=== PATIENT | female | born 1990 | race Caucasian/White ===

== ENCOUNTER 2023-03-06 08:07 | Emergency (ER) | payer OTHER ==
[~2023-03-06] VITALS: Ht 165.1 cm; Wt 72.6 kg
--- OUTSIDE RECORDS SUMMARY | ~2023-03-06 | XMS | Continuity of Care Document ---
Demographics + + + | Address | [address] | | | [place] [address] | + + + | Preferred Language | Unknown | + + + | Marital Status | Never | + + + | Anabaptist Affiliation | Unknown | + + + | Race | White | + + + | Ethnic Group | Unknown | + + + Author + + + | Author | [facility] | + + + | Organization | [facility] | + + + | Address | [address] | | | [place] [address] | + + + | Phone | | + + + Care Team Providers + + + + | Care Assistant Front Desk Manager Name | Role | Phone | + + + + Unavailable | Unavailable | + + + + Allergies No information. Encounters No information. Functional Status No information. Immunizations No information. Medications No information. Problems + + + + | date | description | facility | + + + + | 2023-02-12 16:30 | SLEEP [facility]A, UNSPECIFIED | [facility] | + + + + | 2023-02-12 16:33 | SLEEP APNEA, UNSPECIFIED | [facility] | + + + + Procedures No information. Results/Labs No information. Social History No information. Vital Signs No information."
--- OUTSIDE RECORDS SUMMARY | ~2023-03-06 | XMS | Continuity of Care Document ---
Demographics + + + | Address | [address] | | | [place] [address] | + + + | Preferred Language | Unknown | + + + | Marital Status | Never | + + + | Samaritan Affiliation | Unknown | + + + | Race | White | + + + | Ethnic Group | Unknown | + + + Author + + + | Author | [facility] | + + + | Organization | [facility] | + + + | Address | [address] | | | [place] [address] | + + + | Phone | | + + + Care Team Providers + + + + | Care Computer Graphic Designer Name | Role | Phone | + [...]
[2023-03-06 08:40] LABS: BILIRUBIN, URINE NEGATIVE (negative); BLOOD/HGB, URINE TRACE-I (Negative); KETONE, URINE NEGATIVE (Negative); NITRITE, URINE NEGATIVE (negative)
[2023-03-06 08:45] LABS: BASOPHILS 0.5 % (0-2); EOSINOPHILS 1.1 % (0-6); HEMATOCRIT 43.6 % (35.0-50.0); HEMOGLOBIN 14.4 g/dL (12.0-18.0); LYMPHOCYTES 13.2 % (24-44); MCHC 32.9 g/dl (30-36); MCV 100.3 fl (81-99); MONOCYTES 8.5 % (0-12); NEUTROPHILS 76.7 % (39-80); PLATELET COUNT 272 K/uL (140-440); RBC 4.35 M/ul (4.3-5.7); RDW 11.9 (10.5-15.0)
[2023-03-06 08:51] LABS: LEUK ESTERASE, URINE NEGATIVE (negative)
[2023-03-06 08:55] LABS: ALBUMIN 3.9 g/dL (3.4-5.0); ALBUMIN/GLOBULIN RATIO 1.05 (1.1-2.4); ANION GAP 18.7 (7-21); BACTERIA, URINE RARE /hpf (negative); BILIRUBIN, TOTAL 0.3 ng/dL (0.2-1.0); BUN/CREATININE RATIO 10.38 (6.0-28.6); CASTS, URINE NONE SEEN \\lpf; COLLECTION TYPE, URINE CLEAN CATCH; CREATININE, SERUM 0.77 mg/dL (0.55-1.02); CRYSTALS, URINE NONE SEEN (0-1+); EPITHELIAL CELLS, URINE SQUAMOUS 3+ /lpf (0-1+); POTASSIUM 3.7 mmol/L (3.5-5.1); PROTEIN, TOTAL 7.6 g/dL (6.4-8.2); REFLEX CULTURE, URINE No (No)
[2023-03-06] MEDS ORDERED: LEVOTHYROXINE125 MC1 PO (08:58)
[2023-03-06] MEDS ORDERED: NAPROXEN500 MG PO (08:58)
[2023-03-06] MEDS ORDERED: DICYCLOMINE HCL20 MG PO (10:35)
[2023-03-06] MEDS ORDERED: LEVSIN0.125 MG PO (10:35)
[2023-03-06] MEDS ORDERED: ONDANSETRON ODT8 MG PO (10:35)
[2023-03-06 11:07] VITALS: BP 117/76
== END 2023-03-06 11:13 | disposition home or self-care (01) ==
LOC: ED 08:07
PROVIDERS: Family Medicine
DX: K58.9 Irritable bowel syndrome, unspecified (principal)
CPT/HCPCS: 36415; 74177; 80053; 81001; 83690; 84703; 85025; 96374; 96375; 96376; 99284-25; J2270; J2405; J7030; Q9967